=== PATIENT | male | born 1980 | race African-American/Black ===

== ENCOUNTER 2023-02-11 16:01 | Inpatient (IN) | payer OTHER ==
[~2023-02-11] VITALS: Ht 172.7 cm; Wt 87.7 kg
[2023-02-11] MEDS ORDERED: NALOXONE HCL 1 MG/ML 2 ML SYRINGE ONE (16:11)
[2023-02-11] MEDS ORDERED: NALOXONE HCL 1 MG/ML 2 ML SYRINGE IVP ONE (16:15)
[2023-02-11] MEDS ORDERED: LORazepam 2 MG/ML VIAL IVP ONE (16:15)
[2023-02-11 16:30] LABS: EOSINOPHILS % (AUTO) 0.6 % (1.0-6.0); HEMATOCRIT 47.4 % (41-53); HEMOGLOBIN 15.6 g/dL (13.5-17.5); LYMPHOCYTES % (AUTO) 22.2 % (22.0-44.0); MEAN CORPUSCULAR HEMOGLOBIN 36.5 pg (26.0-34.0); MEAN CORPUSCULAR VOLUME 111 fL (80-100); MONOCYTES % (AUTO) 7.4 % (2.0-9.0); NEUTROPHILS # (AUTO) 9.4 K/uL (1.8-7.7); NEUTROPHILS % (AUTO) 68.8 % (40.0-70.0); PLATELET COUNT (AUTO) 390 K/uL (150-450); RED BLOOD CELL COUNT(AUTO) 4.28 MIL/uL (4.50-5.90); RED CELL DISTRIBUTION WIDTH 14.3 % (11.5-14.5)
[2023-02-11] MEDS ORDERED: MIDAZOLAM HCL 5 MG/ML VIAL ONE (16:33)
[2023-02-11] MEDS ORDERED: MIDAZOLAM HCL 5 MG/ML VIAL IM ONE (16:45)
[2023-02-11 16:46] LABS: ALANINE AMINOTRANSFERASE 133 U/L (12-78); ALBUMIN 4.9 g/dL (3.4-5.0); ALKALINE PHOSPHATASE 107 U/L (46-116); ANION GAP 23 mmol/L (8-16); ASPARTATE AMINOTRANSFERASE 75 U/L (15-37); BILIRUBIN,TOTAL 0.5 mg/dL (0.1-1.0); CALCIUM, TOTAL 9.4 mg/dL (8.8-10.5); CARBON DIOXIDE 17 mmol/L (22-29); CHLORIDE 103 mmol/L (98-107); CREATININE 1.48 mg/dL (0.60-1.30); GLOMERULAR FILTR. RATE CALC > 60 mL/min (>60); GLUCOSE,RANDOM 245 mg/dL (70-110); SODIUM SERUM 143 mmol/L (136-145); TOTAL PROTEIN, SERUM 8.7 g/dL (6.4-8.2); UREA NITROGEN, BLOOD 6 mg/dL (7-18)
[2023-02-11 16:47] LABS: POTASSIUM 2.9 mmol/L (3.5-5.1)
[2023-02-11] MEDS ORDERED: POTASSIUM CHL 10 MEQ/WATER 50 ML IV ONE (17:00)
[2023-02-11 17:20] LABS: CREATINE KINASE, TOTAL ONLY 221 U/L (39-308); PHENYTOIN (DILANTIN) < 0.5 mcg/mL (10.0-20.0); VALPROIC ACID < 3 mcg/mL (50-100)
[2023-02-11 17:21] LABS: CARBAMAZEPINE (TEGRETOL) < 0.5 mcg/mL (4.0-12.0)
[2023-02-11] MEDS ORDERED: SODIUM CHLORIDE 0.9% 2,650 ML IV ONE (17:30)
[2023-02-11 17:58] LABS: ABG BASE EXCESS -2.9 mmol/L (-2.0-3.0); ABG CARBOXYHEMOGLOBIN 1.4 % (0.0-1.5); ABG HCO3 22.1 mmol/L (22.0-26.0); ABG METHEMOGLOBIN 0.3 % (0.0-1.5); ABG OXYGEN CONTENT 20.6 mL/dL (15.0-23.0); ABG OXYGEN SATURATION 92.6 % (95.0-98.0); ABG PCO2 41 mmHg (35-45); ABG PH 7.359 (7.35-7.450); ABG TOTAL HEMOGLOBIN 16.1 G/dL (12.0-18.0); PO2, ARTERIAL BG 65.5 mmHg (88.0-96.0); SOURCE, BLOOD GAS ARTERIAL; TEMPERATURE, FAHRENHEIT, BG 97.7 FAHREN (96.0-98.6)
[2023-02-11 17:59] LABS: SITE, BLOOD GAS LFT RADIAL
[2023-02-11 18:00] LABS: ABG A-A DIFF O2 35.4 mmHg (10-20.0); O2 DEVICE,BLOOD GAS ROOM AIR (ROOM AIR)
[2023-02-11] MEDS ORDERED: LevETIRAcetam 1,000 MG in DEXTROSE 5%-WATER 100 ML IV ONE (18:30)
[2023-02-11 18:38] LABS: COVID AG,FIA SOURCE NASAL SWAB
[2023-02-11] MEDS ORDERED: INSULIN LISPRO 100 UNITS/ML SQ PRN (18:45)
[2023-02-11] MEDS ORDERED: ONDANSETRON HCL 4 MG/2 ML VIAL IVP PRN (18:45)
[2023-02-11] MEDS ORDERED: BISACODYL 10 MG RECTAL RECTAL SUPPOSITORY PR PRN (18:45)
[2023-02-11] MEDS ORDERED: SODIUM CHLORIDE 0.9% 1,000 ML IV ONE (18:45)
[2023-02-11] MEDS ORDERED: LORazepam 2 MG/ML VIAL IVP PRN (18:45)
[2023-02-11] MEDS ORDERED: ACETAMINOPHEN 325 MG TABLET PO PRN (18:45)
[2023-02-11] MEDS ORDERED: DEXTROSE 50%-WATER 25 GM/50 ML SYRINGE IVP PRN (18:45)
[2023-02-11] MEDS ORDERED: POTASSIUM CHLORIDE 20 MEQ ER TABLET PO PRN (19:00)
[2023-02-11] MEDS ORDERED: POTASSIUM CHL 10 MEQ/WATER 50 ML IV PRN (19:00)
[2023-02-11 19:10] LABS: INR 1.1 (0.9-1.1); PROTHROMBIN TIME 11.9 SEC (9.4-11.6)
[2023-02-11 20:36] LABS: APPEARANCE,URINE CLEAR (CLEAR); BILIRUBIN,URINE NEGATIVE (NEGATIVE); GLUCOSE, URINE (UA) NEGATIVE (NEGATIVE); KETONES,URINE NEGATIVE (NEGATIVE); LEUKOCYTE ESTERASE ,URINE NEGATIVE (NEGATIVE); NITRATE,URINE NEGATIVE (NEGATIVE); OCCULT BLOOD,URINE TRACE (NEGATIVE); PROTEIN,URINE NEGATIVE (NEGATIVE); SPECIFIC GRAVITIY, URINE 1.005 (1.003-1.030); UROBILINOGEN,URINE <=1.0 mg/dL (<=1.0)
[2023-02-11 20:43] LABS: AMPHET/METH SCREEN,URINE NEGATIVE (NEGATIVE); BARBITURATE SCREEN, URINE NEGATIVE (NEGATIVE); BENZODIAZEPINES SCREEN,URINE POSITIVE (NEGATIVE); CANNABINOID SCREEN,URINE NEGATIVE (NEGATIVE); COCAINE SCREEN,URINE NEGATIVE (NEGATIVE); METHADONE SCREEN, URINE NEGATIVE (NEGATIVE); OPIATE SCREEN,URINE NEGATIVE (NEGATIVE); PHENCYCLIDINE SCREEN,URINE NEGATIVE (NEGATIVE)
[2023-02-11 20:59] LABS: LACTIC ACID 3.8 mmol/L (0.4-2.0)
[2023-02-11 21:06] LABS: BACTERIA,URINE None Seen /HPF (None Seen); RBC,URINE None Seen /HPF (0-2); SQUAMOUS EPITHELIAL CELL,UR None Seen /LPF (None Seen); WBC,URINE None Seen /HPF (0-5)
[2023-02-11 21:31] VITALS: BP 147/94
[2023-02-12] VITALS (7 sets, daily range): BP systolic 129–156; BP diastolic 73–94
[2023-02-12 05:16] LABS: GLUCOMETER DEV NAME(LOC) 5N.2C; GLUCOSE,POINT OF CARE 101 MG/DL (70-110)
[2023-02-12 06:36] LABS: GLUCOMETER DEV NAME(LOC) 5N.2C; GLUCOSE,POINT OF CARE 104 MG/DL (70-110)
[2023-02-12] MEDS: HEPARIN SODIUM,PORCINE 5,000 UNITS/ML VIAL SQ SCH ×3 (09:05→16:56)
[2023-02-12] MEDS: LevETIRAcetam 1,000 MG in DEXTROSE 5%-WATER 100 ML IV SCH ×2 (09:06→20:47)
[2023-02-12] MEDS: PANTOPRAZOLE SODIUM 40 MG/VIAL IVP SCH (09:07)
[2023-02-12 20:16] LABS: GLUCOMETER DEV NAME(LOC) 5S.2C; GLUCOSE,POINT OF CARE 125 MG/DL (70-110)
[2023-02-12 20:16] LABS: GLUCOMETER DEV NAME(LOC) 5S.2C; GLUCOSE,POINT OF CARE 111 MG/DL (70-110)
[2023-02-12 23:16] LABS: GLUCOMETER DEV NAME(LOC) 5S.2C; GLUCOSE,POINT OF CARE 106 MG/DL (70-110)
[2023-02-13 06:09] VITALS: BP 155/89
[2023-02-13 07:44] VITALS: BP 152/79
[2023-02-13] MEDS: LevETIRAcetam 1,000 MG in DEXTROSE 5%-WATER 100 ML IV SCH (08:55)
[2023-02-13] MEDS: HEPARIN SODIUM,PORCINE 5,000 UNITS/ML VIAL SQ SCH ×2 (08:55)
[2023-02-13] MEDS: PANTOPRAZOLE SODIUM 40 MG/VIAL IVP SCH (08:56)
[2023-02-13] MEDS ORDERED: GADOTERATE MEGLUMINE 10 MMOL/20 ML VIAL IVP ONE (11:32)
[2023-02-13 12:15] VITALS: BP 140/87
[2023-02-13] MEDS ORDERED: LEVE250T PO (15:14)
[2023-02-14 02:21] LABS: GLUCOMETER DEV NAME(LOC) 5S.2C; GLUCOSE,POINT OF CARE 106 MG/DL (70-110)
[2023-02-14 02:21] LABS: GLUCOMETER DEV NAME(LOC) 5S.2C; GLUCOSE,POINT OF CARE 101 MG/DL (70-110)
== END 2023-02-13 16:55 | disposition home or self-care (01) | DRG 53 ==
LOC: EMS 16:03 → AHU 19:26 → 5N 21:13
PROVIDERS: ADMIT Internal Medicine; ATTEND Internal Medicine
PROC: 4A00X4Z Measurement of Central Nervous Electrical Activity, External Approach (ICD-10-PCS; principal; 2023-02-13)
DX: R56.9 Unspecified convulsions (principal); G93.89 Other specified disorders of brain; E11.9 Type 2 diabetes mellitus without complications; E87.6 Hypokalemia; Z87.828 Personal history of other (healed) physical injury and trauma
CPT/HCPCS: 36600; 51702; 70450; 70553; 71045; 72125; 80053; 80156; 80164; 80185; 80307; 81001; 82550; 82805; 82962; 83605; 83735; 84132; 84145; 84484; 85025; 85610; 87040; 92523; 92610; 93005; 95816; 99291; C9113; G0480; G0482; J0712; J1644; J2250; J2310; J3480; J7030; J7060; 36415-L1; 36415-TC